=== PATIENT | female | born 1945 | race Caucasian/White ===

== ENCOUNTER → 2016-03-03 | Outpatient (CLI) | payer MEDICARE ==
[~2016-03-03] MED LIST: ACET50TAOT PO; ASPI325T PO; LEVO175T2 PO; PERCOCET PO; VITMTA PO; XARE10TA PO
--- NOTE | 2016-03-03 12:02 | REPMRS ---
Patient History The patient states she had a clinical breast exam in 03/09 Patient is postmenopausal and has history of thyroid cancer. Family history of breast cancer in sister at age 50 or over. Digital Woman Screen Mammo: March 03, 2016 - Exam #: [id number] Bilateral CC and MLO view(s) were taken. Technologist: Genie Chin, Technologist Prior study comparison: February 06, 2015, digital woman screen mammo performed at [facility]. December 19, 2012, digital woman screen mammo performed at [facility]. February 17, 2011, bilateral bilat screen digital mammo performed at [facility]. FINDINGS: The breast tissue is heterogeneously dense. This may lower the sensitivity of mammography. There is a moderate amount of heterogeneously dense fibroglandular tissue which is fairly symmetric. There is no interval development of dominant mass, architectural distortion, or clustered microcalcification typical of malignancy. There has been no change in the appearance of the mammogram from the prior studies. ASSESSMENT: BI-RADS/ACR category 1 mammogram. Negative. Recommendation Routine screening mammogram of both breasts in 1 year (for women over age 40). This mammogram was interpreted with the aid of an FDA-approved computer-aided dectection system. Electronically Signed By: Rod Bell MD 03/03/16 3020
== END ==
LOC: M WHC 10:11
PROVIDERS: ATTEND Nurse Practitioner Family
DX: Z12.31 Encounter for screening mammogram for malignant neoplasm of breast (principal); Z78.0 Asymptomatic menopausal state; Z85.850 Personal history of malignant neoplasm of thyroid; Z80.3 Family history of malignant neoplasm of breast
CPT/HCPCS: G0202; G0463

== ENCOUNTER → 2016-10-13 | Outpatient (CLI) | payer MEDICARE ==
[2016-10-13 10:26] LABS: ALKALINE PHOSPHATASE 82 U/L (45-117); ALT/SGPT 27 U/L (12-78); ANION GAP 7 MEQ/L (8-16); AST/SGOT 28 U/L (15-37); BILIRUBIN,TOTAL 0.5 MG/DL (0.2-1.0); BLOOD UREA NITROGEN 20 MG/DL (7-18); CALCIUM LEVEL 9.4 MG/DL (8.8-10.2); CARBON DIOXIDE LEVEL 25 MEQ/L (21-32); CHLORIDE LEVEL 111 MEQ/L (98-107); CREATININE FOR GFR 0.82 MG/DL (0.55-1.02); GLOMERULAR FILTRATION RATE > 60.0 (>45); GLUCOSE, FASTING 87 MG/DL (80-110); POTASSIUM SERUM 4.6 MEQ/L (3.5-5.1); SODIUM LEVEL 143 MEQ/L (136-145); TRIGLYCERIDES LEVEL 108 MG/DL (<150)
[2016-10-13 10:27] LABS: ALBUMIN 3.9 GM/DL (3.2-5.2); CHOLESTEROL LEVEL 204 MG/DL (<200); FREE T4 1.75 NG/DL (0.76-1.46); TOTAL PROTEIN 6.9 GM/DL (6.4-8.2)
== END ==
LOC: M LAB 08:48
PROVIDERS: ATTEND Nurse Practitioner Family
DX: C73 Malignant neoplasm of thyroid gland (principal)

== ENCOUNTER → 2017-03-04 | Outpatient (CLI) | payer MEDICARE | LOC: M WHC 10:24 | DX: Z12.31 Encounter for screening mammogram for malignant neoplasm of breast (principal); Z12.4 Encounter for screening for malignant neoplasm of cervix; N95.2 Postmenopausal atrophic vaginitis; Z12.12 Encounter for screening for malignant neoplasm of rectum | CPT/HCPCS: G0123 ==

== ENCOUNTER → 2017-03-04 | Outpatient (REF) | payer MEDICARE | LOC: M SFHCWAGY 11:01 | DX: Z12.4 Encounter for screening for malignant neoplasm of cervix (principal); N95.2 Postmenopausal atrophic vaginitis | CPT/HCPCS: G0123 ==

== ENCOUNTER → 2017-11-08 | Outpatient (CLI) | payer MEDICARE ==
[2017-11-08 15:16] LABS: ALBUMIN/GLOBULIN RATIO 1.48 (1.00-1.93); ALKALINE PHOSPHATASE 73 U/L (45-117); ALT/SGPT 22 U/L (12-78); ANION GAP 9 MEQ/L (8-16); AST/SGOT 19 U/L (7-37); BILIRUBIN,TOTAL 0.4 MG/DL (0.2-1.0); BLOOD UREA NITROGEN 18 MG/DL (7-18); CALCIUM LEVEL 9.3 MG/DL (8.8-10.2); CARBON DIOXIDE LEVEL 25 MEQ/L (21-32); CHLORIDE LEVEL 111 MEQ/L (98-107); CHOLESTEROL LEVEL 197 MG/DL (<200); CHOLESTEROL RISK RATIO 2.698 (<5); CREATININE FOR GFR 0.72 MG/DL (0.55-1.30); FREE T4 1.67 NG/DL (0.76-1.46); GLOMERULAR FILTRATION RATE > 60.0 (>39); GLUCOSE, FASTING 81 MG/DL (70-100); HDL CHOLESTEROL 73 MG/DL (>40); LDL CHOLESTEROL 108 MG/DL (<100); NON-HDL-C 124 MG/DL; POTASSIUM SERUM 4.1 MEQ/L (3.5-5.1); SODIUM LEVEL 145 MEQ/L (136-145); THYROID STIMULATING HORMONE 0.095 uIU/ML (0.358-3.740); TOTAL PROTEIN 6.7 GM/DL (6.4-8.2); TRIGLYCERIDES LEVEL 79 MG/DL (<150)
== END ==
LOC: M LAB 14:20
DX: E89.3 Postprocedural hypopituitarism (principal); Z85.850 Personal history of malignant neoplasm of thyroid
CPT/HCPCS: 84443

== ENCOUNTER → 2018-03-07 | Outpatient (CLI) | payer MEDICARE ==
[~2018-03-07] MED LIST changes: +ACET500T15 PO; -ACET50TAOT PO
--- NOTE | 2018-03-07 15:06 | REPMRS ---
Patient History The patient states she had a clinical breast exam in 03/11 Family history of breast cancer at age 50 or over in sister. Digital Woman Screen Mammo: March 07, 2018 - Exam #: [id number] Bilateral CC and MLO view(s) were taken. Technologist: Genie Chin, Technologist Prior study comparison: March 04, 2017, digital woman screen mammo performed at [facility]. March 03, 2016, digital woman screen mammo performed at [facility]. February 06, 2015, digital woman screen mammo performed at [facility]. FINDINGS: The breast tissue is heterogeneously dense. This may lower the sensitivity of mammography. There is a moderate amount of heterogeneously dense fibroglandular tissue which is fairly symmetric. There is no interval development of dominant mass, architectural distortion, or clustered microcalcification typical of malignancy. There has been no change in the appearance of the mammogram from the prior studies. 3-D tomosynthesis shows no additional findings. Assessment: BI-RADS/ACR category 1 mammogram. Negative. Recommendation Routine screening mammogram of both breasts in 1 year (for women over age 40). This patient's Lifetime Breast Cancer RIsk is estimated at 7.4 %. This mammogram was interpreted with the aid of an FDA-approved computer-aided dectection system. Electronically Signed By: Rod Bell MD 03/07/18 9415
== END ==
LOC: M WHC 10:09
PROVIDERS: ATTEND Nurse Practitioner Family
DX: Z12.31 Encounter for screening mammogram for malignant neoplasm of breast (principal); Z80.3 Family history of malignant neoplasm of breast
CPT/HCPCS: 77063; 77067; G0463

== ENCOUNTER → 2018-05-17 | Outpatient (CLI) | payer MEDICARE ==
[2018-05-17 11:17] LABS: FREE T4 1.47 NG/DL (0.76-1.46); THYROID STIMULATING HORMONE 0.333 uIU/ML (0.358-3.740)
== END ==
LOC: M LAB 10:18
PROVIDERS: ATTEND Nurse Practitioner Family
DX: Z85.850 Personal history of malignant neoplasm of thyroid (principal)

== ENCOUNTER 2019-01-28 10:37 | Emergency (ER) | payer MEDICARE ==
[~2019-01-28] VITALS: Ht 170.2 cm; Wt 66.8 kg
[~2019-01-28 10:37] MED LIST changes: +ASPI-1 PO; -ASPI325T PO
[2019-01-28] MEDS ORDERED: XALA0.007 OU (11:07)
[2019-01-28] MEDS ORDERED: ACETAMINOPHEN 325 MG TAB PO ONE (11:45)
--- NOTE | 2019-01-28 12:26 | REP ---
CT BRAIN WITHOUT CONTRAST: 01/28/2019. Clinical history: Trauma, fell down six steps. No LOC. Findings: No prior studies. Soft tissue and bone windows reviewed for each slice level. Lateral ventricles are midline, symmetric and without dilatation or displacement. Third and fourth ventricles also seen and unremarkable. Basal ganglia were symmetric and grossly intact. Phillips-white junction differentiation well maintained. Cortical stripe was preserved with minimal cortical atrophy, age appropriate. There is no intra- or extra-axial hemorrhage, mass, mass effect or acute infarct. There is some benign falcine calcifications anteriorly. Brainstem is intact. Cerebellum shows some mild atrophy with no posterior fossa hemorrhage. Basal cisterns are normal. Mastoids and the visualized sinuses were clear. The skull base and calvarium show no fracture or focal lesion. Impression: 1. Mild cortical atrophy, age appropriate. No acute infarct, intracranial hemorrhage, mass, mass effect, skull fracture or any other acute finding. The visualized sinuses and mastoids were intact. Electronically Signed by Jai Mesa MD 01/28/2019 05:10 P
--- NOTE | 2019-01-28 12:30 | REP ---
LEFT WRIST COMPLETE, 01/28/2019. CLINICAL HISTORY: Trauma, fell down six steps. FINDINGS: There is an intra-articular distal radial metaphyseal fracture with some impaction and dorsal angulation of the distal fragment. The radiocarpal articulation is preserved. The distal ulna shows no definite displaced fracture. Carpal and metacarpal bones with some demineralization but no fractures. Some degenerative changes first CMC joint. IMPRESSION: 1. Distal radial metaphyseal and intra-articular impacted fracture with distal fragment with dorsal angulation. Radiocarpal articulation preserved. No other displaced fracture. Bones demineralized. Electronically Signed by Jai Mesa MD 01/28/2019 05:11 P
--- NOTE | 2019-01-28 12:30 | REP ---
CT CERVICAL SPINE WITHOUT CONTRAST: 01/28/2019. CLINICAL HISTORY: Trauma, fell down six steps. No LOC. FINDINGS: No prior study. Standard trauma protocol cervical spine CT. There is cervical spondylosis greatest at C5-6 with anterior osteophytes and posterior osteophytes and a few millimeters retrolisthesis of C5 on 6. Disc space is narrowed at that level and at C6-7 with prominent anterior osteophytes at that level. There is slight narrowing of the disc space and a few millimeters of anterolisthesis of C4 5. C3-4 and C2-3 and C7-T1 disc levels intact. No compression deformities. Dens is unremarkable. Slight narrowing of its articulation with the anterior arch of C1. The dens shows symmetric relationships to the lateral masses of C1. The craniocervical junction is grossly intact. The spinous processes, lamina, pedicles, and transverse processes are unremarkable. There is some facet arthropathy at multiple levels bilaterally. Disc space narrowing with spurs contribute to central canal stenosis at C5-6 with some mild foraminal encroachment, left greater than right at this level. Central canal preserved with some foraminal encroachment on the left but not the right at C4-5. Central canal and foramina adequate at C3-4, C2-3, and C7-T1. The C6-7 level shows flattening of the ventral thecal sac with a small posterior broad-based disc bulge. Foramina show mild encroachment on the left, adequate on the right. There is no torticollis. IMPRESSION: 1. Cervical spondylosis with central canal stenosis due to combined factors at C5-6 and C6-7. 2. Spondylosis from C4-5 through C6-7 and multilevel foraminal encroachment, as detailed in the body of the report. This shows mild foraminal encroachment at multiple levels and involving one or both sides. 3. No compression deformity. The few millimeters of retrolisthesis of C5 on 6 and anterolisthesis of C4 on 5 are felt related to facet arthropathy. Nothing acute. Electronically Signed by Jai Mesa MD 01/28/2019 05:11 P
[2019-01-28 13:33] VITALS: BP 143/66
[2019-01-28] MEDS ORDERED: PERCOCET 5MG/325MG TAB PO ONE (14:15)
[2019-01-28] MEDS ORDERED: OXYC1TAB23 PO (14:18)
--- NOTE | 2019-01-29 16:52 | ED PDOC ---
Post-Departure Follow-Up dr ron and amrita platt faxed formal report of ct c spine for fu Humberto Barry MD Jan 29, 2019 16:52
== END 2019-01-28 14:37 | disposition home or self-care (01) ==
LOC: M ED 10:37
DX: S52.572A Other intraarticular fracture of lower end of left radius, initial encounter for closed fracture (principal); M47.812 Spondylosis without myelopathy or radiculopathy, cervical region; M50.322 Other cervical disc degeneration at C5-C6 level; W10.8XXA Fall (on) (from) other stairs and steps, initial encounter; Y92.018 Other place in single-family (private) house as the place of occurrence of the external cause; E03.9 Hypothyroidism, unspecified; Z79.899 Other long term (current) drug therapy

== ENCOUNTER → 2019-04-04 | Outpatient (CLI) | payer MEDICARE ==
[~2019-04-04] MED LIST changes: +OXYC1TAB23 PO; +XALA0.007 OU
--- NOTE | 2019-04-04 14:18 | REPMRS ---
Patient History The patient states she had a clinical breast exam in March 2019.Family history of breast cancer at age 50 or over in sister. Digital Woman Screen Mammo: April 04, 2019 - Exam #: [id number] Bilateral CC and MLO view(s) were taken. Technologist: Sara Fermin, Technologist Prior study comparison: March 07, 2018, bilateral digital woman screen mammo performed at [facility]. March 04, 2017, digital woman screen mammo performed at [facility]. March 03, 2016, digital woman screen mammo performed at [facility]. FINDINGS: The breast tissue is heterogeneously dense. This may lower the sensitivity of mammography. There is a moderate amount of heterogeneously dense fibroglandular tissue which is fairly symmetric. There is no interval development of dominant mass, architectural distortion, or grouped microcalcification typical of malignancy. There has been no change in the appearance of the mammogram from the prior studies. 3-D tomosynthesis shows no additional findings. Assessment: BI-RADS/ACR category 1 mammogram. Negative Mammogram. Recommendation Routine screening mammogram of both breasts in 1 year (for women over age 40). This patient's Lifetime Breast Cancer RIsk is estimated at 7.0 %. This mammogram was interpreted with the aid of an FDA-approved computer-aided dectection system. Electronically Signed By: Rod Bell MD 04/04/19 1285
--- NOTE | 2019-04-09 15:21 | DEXA ---
AP SPINE L1 - L4 1.255 0.5 2.2 LT FEMUR TOTAL 0.819 -1.5 0.1 LT NECK 0.859 -1.3 0.5 RT FEMUR TOTAL 0.721 -2.3 -0.7 RT NECK 0.784 -1.8 -0.1 TOTAL BODY TOTAL OTHER COMMENTS: Normal bone densitometry of the spine. There is low bone density of the hips. Lumbar scoliosis and spondylosis. The density of the spine has decreased 4.1% since the initial exam on 08/03/2000. The spine density has decreased 1.3% since the most recent exam on 12/19/2012. The density of the left hip has decreased 23.2% since the initial exam on 08/03/2000. The density of the left hip has decreased 7.9% since the most recent exam on 12/19/2012. The density of the right hip has decreased 32.9% since the initial exam on 08/03/2000. The density of the right hip has decreased 16.4% since the most recent exam on 12/19/2012. FOLLOW-UP: Recommendation for the next bone density exam: 2 years. CHRISTINE
== END ==
LOC: M WHC 10:07
PROVIDERS: ATTEND Nurse Practitioner Family
DX: Z01.419 Encounter for gynecological examination (general) (routine) without abnormal findings (principal); Z12.31 Encounter for screening mammogram for malignant neoplasm of breast; N95.9 Unspecified menopausal and perimenopausal disorder; Z80.3 Family history of malignant neoplasm of breast; Z12.12 Encounter for screening for malignant neoplasm of rectum
CPT/HCPCS: 77063; 77067; 77080; 82270; G0101

== ENCOUNTER → 2019-08-31 | Outpatient (REF) | payer MEDICARE ==
[2019-08-31 11:52] LABS: FREE T4 1.73 NG/DL (0.76-1.46); THYROID STIMULATING HORMONE 0.04 uIU/ML (0.358-3.740)
== END ==
LOC: M PLALAB 10:22
PROVIDERS: ATTEND Family Medicine
DX: E89.0 Postprocedural hypothyroidism (principal)

== ENCOUNTER → 2019-11-07 | Outpatient (CLI) | payer MEDICARE ==
[2019-11-07 16:13] LABS: FREE T4 1.4 NG/DL (0.76-1.46); THYROID STIMULATING HORMONE 0.129 uIU/ML (0.358-3.740)
== END ==
LOC: M PLALAB 13:52
PROVIDERS: ATTEND Family Medicine
DX: E03.9 Hypothyroidism, unspecified (principal)
CPT/HCPCS: 36415; 84439; 84443; G0463

== ENCOUNTER → 2020-04-04 | Outpatient (CLI) | payer MEDICARE ==
--- NOTE | 2020-04-04 11:09 | REPMRS ---
Patient History The patient states she had a clinical breast exam in 03/2020. Patient is postmenopausal and has history of other cancer. Family history of breast cancer at age 50 or over in sister. No Hormone Replacement Therapy Digital Woman Screen Mammo: April 04, 2020 - Exam #: [id number] Bilateral CC and MLO view(s) were taken. Technologist: Bessie Hernandez, Technologist Prior study comparison: April 04, 2019, bilateral digital woman screen mammo performed at [facility]. March 07, 2018, bilateral digital woman screen mammo performed at [facility]. March 04, 2017, digital woman screen mammo performed at [facility]. FINDINGS: The breast tissue is heterogeneously dense. This may lower the sensitivity of mammography. The Volpara volumetric breast density category is: C. There is a moderate amount of heterogeneously dense fibroglandular tissue which is fairly symmetric. There is no interval development of dominant mass, architectural distortion, or grouped microcalcification typical of malignancy. There has been no change in the appearance of the mammogram from the prior studies. 3-D tomosynthesis shows no additional findings. Assessment: BI-RADS/ACR category 1 mammogram. Negative Mammogram. Recommendation Routine screening mammogram of both breasts in 1 year (for women over age 40). This patient's [facility] Lifetime Breast Cancer RIsk is estimated at 6.6 %. This mammogram was interpreted with the aid of an FDA-approved computer-aided dectection system. Electronically Signed By: Rod Bell MD 04/04/20 1856
== END ==
LOC: M WHC 09:54
PROVIDERS: ATTEND Nurse Practitioner Family
DX: Z12.31 Encounter for screening mammogram for malignant neoplasm of breast (principal); Z78.0 Asymptomatic menopausal state; Z85.89 Personal history of malignant neoplasm of other organs and systems; Z80.3 Family history of malignant neoplasm of breast
CPT/HCPCS: 77063; 77067; 81002; G0463

== ENCOUNTER → 2021-03-19 | Outpatient (CLI) | payer MEDICARE ==
[2021-03-19 15:18] LABS: ALBUMIN 4.1 GM/DL (3.2-5.2); ALT/SGPT 31 U/L (12-78); BILIRUBIN,TOTAL 0.5 MG/DL (0.2-1.0); BLOOD UREA NITROGEN 17 MG/DL (7-18); CALCIUM LEVEL 9.4 MG/DL (8.8-10.2); CARBON DIOXIDE LEVEL 28 MEQ/L (21-32); CHLORIDE LEVEL 110 MEQ/L (98-107); CHOLESTEROL LEVEL 146 MG/DL (<200); CHOLESTEROL RISK RATIO 2.281 (<5); CREATININE FOR GFR 0.74 MG/DL (0.55-1.30); GLOMERULAR FILTRATION RATE > 60.0 (>39); GLUCOSE, FASTING 90 MG/DL (70-100); HDL CHOLESTEROL 64 MG/DL (>40); LDL CHOLESTEROL 65 MG/DL (<100); NON-HDL-C 82 MG/DL; POTASSIUM SERUM 4.6 MEQ/L (3.5-5.1); SODIUM LEVEL 145 MEQ/L (136-145); THYROID STIMULATING HORMONE 0.472 uIU/ML (0.358-3.740); TOTAL PROTEIN 6.9 GM/DL (6.4-8.2); TRIGLYCERIDES LEVEL 84 MG/DL (<150)
== END ==
LOC: M PLALAB 10:06
PROVIDERS: ATTEND Family Medicine
DX: E89.0 Postprocedural hypothyroidism (principal); E78.2 Mixed hyperlipidemia; Z13.1 Encounter for screening for diabetes mellitus

== ENCOUNTER → 2021-04-06 | Outpatient (CLI) | payer MEDICARE | LOC: M WHC 10:55 | PROVIDERS: ATTEND Family Medicine | DX: Z12.31 Encounter for screening mammogram for malignant neoplasm of breast (principal) ==

== ENCOUNTER → 2021-08-10 | Outpatient (CLI) | payer MEDICARE ==
[2021-08-10 14:07] LABS: HEMATOCRIT 44.8 % (36.0-47.0); HEMOGLOBIN 14.1 g/dl (12.0-15.5); MEAN CORPUSCULAR HGB CONC 31.5 g/dl (32.0-36.5); MEAN CORPUSCULAR VOLUME 92.2 fl (80.0-96.0); PLATELET COUNT, AUTOMATED 301 10^3/uL (150-450); RED BLOOD COUNT 4.86 10^6/uL (4.00-5.40); WHITE BLOOD COUNT 5.8 10^3/uL (4.0-10.0)
[2021-08-10 14:24] LABS: HEMOGLOBIN A1c 5.6 %
[2021-08-10 14:39] LABS: CREATININE, URINE 46.7 MG/DL; MALB URINE SIEMENS < 5.0 MG/L; MAU/CREAT RATIO 10.7 MCG/MG (0.0-30.0)
[2021-08-10 15:34] LABS: ALBUMIN 4.2 GM/DL (3.2-5.2); ALT/SGPT 33 U/L (12-78); BILIRUBIN,TOTAL 0.5 MG/DL (0.2-1.0); BLOOD UREA NITROGEN 14 MG/DL (7-18); CALCIUM LEVEL 9.5 MG/DL (8.8-10.2); CARBON DIOXIDE LEVEL 30 MEQ/L (21-32); CHLORIDE LEVEL 108 MEQ/L (98-107); CHOLESTEROL LEVEL 144 MG/DL (<200); CHOLESTEROL RISK RATIO 1.972 (<5); CREATININE FOR GFR 0.71 MG/DL (0.55-1.30); GLOMERULAR FILTRATION RATE > 60.0 (>39); GLUCOSE, FASTING 89 MG/DL (70-100); HDL CHOLESTEROL 73 MG/DL (>40); LDL CHOLESTEROL 58 MG/DL (<100); NON-HDL-C 71 MG/DL; POTASSIUM SERUM 4.1 MEQ/L (3.5-5.1); SODIUM LEVEL 143 MEQ/L (136-145); THYROID STIMULATING HORMONE 0.077 uIU/ML (0.358-3.740); TOTAL 25(OH) VITAMIN D 49.5 NG/ML (30.0-100.0); TRIGLYCERIDES LEVEL 67 MG/DL (<150); VITAMIN B12 LEVEL 551 PG/ML (247-911)
== END ==
LOC: M PLALAB 11:00
PROVIDERS: ATTEND Internal Medicine Hematology
DX: E78.2 Mixed hyperlipidemia (principal); Z79.899 Other long term (current) drug therapy

== ENCOUNTER → 2021-08-19 | Outpatient (CLI) | payer MEDICARE | LOC: M EKG 09:39 | PROVIDERS: ATTEND Internal Medicine Hematology | DX: R00.2 Palpitations (principal) ==

== ENCOUNTER → 2021-09-28 | Outpatient (CLI) | payer MEDICARE | LOC: M PLALAB 10:26 | PROVIDERS: ATTEND Internal Medicine Hematology | DX: E89.0 Postprocedural hypothyroidism (principal) ==

== ENCOUNTER → 2021-12-09 | Outpatient (CLI) | payer MEDICARE ==
[2021-12-09 15:00] LABS: BASO # 0.1 10^3/uL (0.0-0.2); EOS # 0.1 10^3/uL (0.0-0.5); HEMATOCRIT 39.9 % (36.0-47.0); HEMOGLOBIN 12.7 g/dl (12.0-15.5); LYMPH # 1.3 10^3/uL (1.5-5.0); LYMPH % 21.8 % (24.0-44.0); MEAN CORPUSCULAR HEMOGLOBIN 29.3 pg (27.0-33.0); MEAN CORPUSCULAR HGB CONC 31.8 g/dl (32.0-36.5); MEAN CORPUSCULAR VOLUME 91.9 fl (80.0-96.0); MONO # 0.4 10^3/uL (0.0-0.8); MONO % 7.3 % (2.0-8.0); NEUTROPHILS # 4.1 10^3/uL (1.5-8.5); NEUTROPHILS % 67.6 % (36.0-66.0); PLATELET COUNT, AUTOMATED 299 10^3/uL (150-450); RED BLOOD COUNT 4.34 10^6/uL (4.00-5.40); WHITE BLOOD COUNT 6.1 10^3/uL (4.0-10.0)
[2021-12-09 16:36] LABS: BLOOD UREA NITROGEN 18 MG/DL (7-18); CALCIUM LEVEL 9.4 MG/DL (8.8-10.2); CARBON DIOXIDE LEVEL 26 MEQ/L (21-32); CHLORIDE LEVEL 109 MEQ/L (98-107); CREATININE FOR GFR 0.76 MG/DL (0.55-1.30); FERRITIN 11 NG/ML (8-252); GLOMERULAR FILTRATION RATE > 60.0 (>39); GLUCOSE, FASTING 81 MG/DL (70-100); POTASSIUM SERUM 4.7 MEQ/L (3.5-5.1); SODIUM LEVEL 140 MEQ/L (136-145)
== END ==
LOC: M PLAIMG 10:29
PROVIDERS: ATTEND Internal Medicine Hematology
DX: M54.50 Low back pain, unspecified (principal); E89.0 Postprocedural hypothyroidism; M41.126 Adolescent idiopathic scoliosis, lumbar region; M41.127 Adolescent idiopathic scoliosis, lumbosacral region

== ENCOUNTER → 2021-12-28 | Outpatient (REF) | payer MEDICARE | LOC: M SFHCPLAZ 16:43 | PROVIDERS: ATTEND Internal Medicine Hematology | DX: E89.0 Postprocedural hypothyroidism (principal) ==

== ENCOUNTER → 2022-06-30 | Outpatient (CLI) | payer MEDICARE | LOC: M PLALAB 09:05 | PROVIDERS: ATTEND Internal Medicine Hematology | DX: E89.0 Postprocedural hypothyroidism (principal) ==

== ENCOUNTER → 2022-08-03 | Outpatient (CLI) | payer MEDICARE | LOC: M PLAIMG 09:27 | PROVIDERS: ATTEND Internal Medicine Hematology | DX: M54.2 Cervicalgia (principal) ==

== ENCOUNTER → 2022-11-05 | Outpatient (REF) | payer MEDICARE | LOC: M SFHCWAGY 17:29 | PROVIDERS: ATTEND Nurse Practitioner Family | DX: Z12.4 Encounter for screening for malignant neoplasm of cervix (principal); N95.2 Postmenopausal atrophic vaginitis | CPT/HCPCS: 87624; G0123 ==

== ENCOUNTER → 2022-11-05 | Outpatient (CLI) | payer MEDICARE | LOC: M WHC 11:00 | PROVIDERS: ATTEND Nurse Practitioner Family | DX: Z13.820 Encounter for screening for osteoporosis (principal); M85.851 Other specified disorders of bone density and structure, right thigh ==

== ENCOUNTER → 2022-11-05 | Outpatient (CLI) | payer MEDICARE | LOC: M WHC 09:41 | PROVIDERS: ATTEND Nurse Practitioner Family | DX: Z12.31 Encounter for screening mammogram for malignant neoplasm of breast (principal) ==

== ENCOUNTER → 2022-12-16 | Outpatient (CLI) | payer MEDICARE ==
[2022-12-16 16:51] LABS: BASO % 0.7 % (0.0-1.0); EOS # 0.2 10^3/uL (0.0-0.5); EOS % 2.8 % (0.0-3.0); HEMATOCRIT 44.2 % (36.0-47.0); LYMPH # 1.2 10^3/uL (1.5-5.0); LYMPH % 21.7 % (24.0-44.0); MEAN CORPUSCULAR HEMOGLOBIN 29.5 pg (27.0-33.0); MEAN CORPUSCULAR HGB CONC 31.7 g/dl (32.0-36.5); MEAN CORPUSCULAR VOLUME 93.1 fl (80.0-96.0); MONO # 0.6 10^3/uL (0.0-0.8); MONO % 10.2 % (2.0-8.0); NEUTROPHILS # 3.6 10^3/uL (1.5-8.5); NEUTROPHILS % 64.2 % (36.0-66.0); PLATELET COUNT, AUTOMATED 293 10^3/uL (150-450); RED BLOOD COUNT 4.75 10^6/uL (4.00-5.40); WHITE BLOOD COUNT 5.7 10^3/uL (4.0-10.0)
[2022-12-16 17:04] LABS: ALKALINE PHOSPHATASE 73 U/L (46-116); ALT/SGPT 29 U/L (7.0-40); AST/SGOT 29 U/L (<34); BILIRUBIN,TOTAL 0.4 MG/DL (0.3-1.2); BLOOD UREA NITROGEN 15 MG/DL (9-23); CALCIUM LEVEL 9.7 MG/DL (8.3-10.6); CARBON DIOXIDE LEVEL 27 MMOL/L (20-31); CHLORIDE LEVEL 107 MMOL/L (98-107); CHOLESTEROL LEVEL 149 MG/DL (<200); CHOLESTEROL RISK RATIO 1.97 (<5); CREATININE FOR GFR 0.68 MG/DL (0.55-1.30); GLOMERULAR FILTRATION RATE > 60.0 (>39); GLUCOSE, FASTING 88 MG/DL (74-106); HDL CHOLESTEROL 75.3 MG/DL (>40); LDL CHOLESTEROL 60.7 MG/DL (<100); MAGNESIUM LEVEL 2.2 MG/DL (1.8-2.4); NON-HDL-C 73.7 MG/DL; POTASSIUM SERUM 4.4 MMOL/L (3.5-5.1); SODIUM LEVEL 143 MMOL/L (136-145); TOTAL PROTEIN 6.7 G/DL (5.7-8.2); TRIGLYCERIDES LEVEL 65 MG/DL (<150)
[2022-12-16 17:54] LABS: HEMOGLOBIN A1c 5.3 % (4.0-6.0)
== END ==
LOC: M PLALAB 12:08
PROVIDERS: ATTEND Internal Medicine Cardiovascular Disease
DX: E78.2 Mixed hyperlipidemia (principal); R06.02 Shortness of breath; Z13.1 Encounter for screening for diabetes mellitus; I50.9 Heart failure, unspecified; I48.91 Unspecified atrial fibrillation

== ENCOUNTER → 2023-03-04 | Outpatient (REF) | payer MEDICARE | LOC: M LAB REF 08:54 | PROVIDERS: ATTEND Surgery | DX: L72.0 Epidermal cyst (principal) ==

== ENCOUNTER → 2023-05-31 | Outpatient (CLI) | payer MEDICARE | LOC: M SOG 09:44 | PROVIDERS: ATTEND Physician Assistant | DX: M79.644 Pain in right finger(s) (principal) ==

== ENCOUNTER → 2023-07-15 | Outpatient (REF) | payer MEDICARE | LOC: M LAB REF 13:22 | PROVIDERS: ATTEND Orthopaedic Surgery Hand Surgery | DX: R22.31 Localized swelling, mass and lump, right upper limb (principal) ==

== ENCOUNTER → 2023-12-08 | Outpatient (CLI) | payer MEDICARE | LOC: M WHC 10:17 | PROVIDERS: ATTEND Nurse Practitioner Family | DX: Z12.31 Encounter for screening mammogram for malignant neoplasm of breast (principal); R92.333 Mammographic heterogeneous density, bilateral breasts ==

== ENCOUNTER → 2024-12-12 | Outpatient (CLI) | payer MEDICARE | LOC: M WHC 10:37 | PROVIDERS: ATTEND Obstetrics & Gynecology | DX: Z12.31 Encounter for screening mammogram for malignant neoplasm of breast (principal); Z13.820 Encounter for screening for osteoporosis; R92.333 Mammographic heterogeneous density, bilateral breasts; M85.80 Other specified disorders of bone density and structure, unspecified site ==

== ENCOUNTER → 2024-12-12 | Outpatient (REF) | payer MEDICARE ==
[2024-12-14 13:22] LABS: HPV APTIMA Not Detected (Not Detected)
== END ==
LOC: M PLALAB 11:56
PROVIDERS: ATTEND Physician Assistant
DX: Z12.4 Encounter for screening for malignant neoplasm of cervix (principal); R39.15 Urgency of urination
CPT/HCPCS: 87086; 87624; G0123